=== PATIENT | male | born 1980 | race Caucasian/White ===

== ENCOUNTER → 2020-07-12 07:27 | Outpatient (CLI) | payer OTHER, SELFPAY ==
[2020-07-12 08:37] LABS: Coronavirus 19 IgG Antibody Negative (Negative); Coronavirus 19 IgM Antibody Negative (Negative)
[2020-07-12 09:33] LABS: Prostate Specific Ag Screen 0.8 ng/ml (0.0-4.0)
== END ==
PROVIDERS: Visit Provider Urology
DX: Z01.818 Encounter for other preprocedural examination (principal); Z30.2 Encounter for sterilization; Z12.5 Encounter for screening for malignant neoplasm of prostate
CPT/HCPCS: 36415; 86328; G0103

== ENCOUNTER 2020-07-12 07:40 | Day surgery (SDC) | payer OTHER, SELFPAY ==
[2020-06-09 11:25] VITALS: BMI 30.9
[2020-07-09 13:00] VITALS: BMI 30.9
[2020-07-12 08:45] VITALS: BP 129/82; PULSE 69; RESP 18; TEMP 36.3; O2SAT 99
[2020-07-12 10:04] VITALS: BP 154/98; PULSE 61; RESP 18; TEMP 36.6; O2SAT 96
--- NOTE | 2020-07-12 11:09 | [facility].OPNOTE ---
Date of procedure: 07/12/20 Pre-op Diagnosis:: Sterilization Post-op Diagnosis:: Same Procedure performed:: Vasectomy Surgeon:: Dong Deng MD Anesthesia: local Estimated blood loss (mL): 0 Clinical Note:: 39-year-old white male who desires sterilization. He was seen in the office for complete vasectomy consultation in May. Operative findings:: Scrotal exam reveals normal-sized testicles. There is a enlarged right epididymis secondary to presumed cyst. Left testicle within normal limits. Left epididymis not palpated well. Operative note:: Patient taken to the operating room after informed consent was obtained. He was placed supine on the stretcher and he was prepped and draped in the standard surgical fashion. The left vas was palpated through the left hemiscrotum and brought cephalad to the midline raphae. Local anesthetic was placed under the skin in the line of the raphae and around the left basal structure. After 1 minute an incision was made in the midline raphae and a tenaculum was placed through the incision and the left vasa was grasped and brought up through the incision. The basal sheath was incised and the vas deferens proper was isolated from its surrounding soft tissue. 1 Hemoclip was placed distally and 2 proximally. A 1 cm segment was excised and the ends of the vas were cauterized. Hemostasis achieved at the surrounding structures and the left vas was placed back in the left hemiscrotum. The right vas was palpated and brought up to the same midline incision. Local anesthetic was placed around the right basal structure as well and identical procedure was performed on the right side. The right vas was dropped back into the hemiscrotum and a 3-0 chromic was placed in a horizontal mattress fashion in the skin. The vas segments were not sent. Neosporin placed on the incision site and a sterile compression dressing applied. Patient tolerated procedure well and there are no complications. Condition: stable Disposition: same day Specimens:: Segments were not sent Complications:: None
== END 2020-07-12 10:10 | disposition home or self-care (01) ==
LOC: OUTP 07:42
PROVIDERS: Visit Provider Urology
PROC: (CPT 55250; principal; 2020-07-12 09:00)
DX: Z30.2 Encounter for sterilization (principal); N45.1 Epididymitis
CPT/HCPCS: 55250